=== PATIENT | female | born 1990 | race Caucasian/White ===

== ENCOUNTER → 2019-04-23 | Outpatient (CLI) | payer OTHER ==
[~2019-04-23] MED LIST: ALBU90I INH; ALBU90OI INH; ALBU90OI6 INH; AMOX500 PO; CEPH500 PO; CODACE30 PO; CRUTCH4 USE; CYCL10 PO; DIPH50 PO; FAMO20 PO; HYDACE5 PO; IBUP600 PO; IBUP800; IBUP800 PO; MULVITMINE PO; NORT10 PO; Naprosyn500 MG PO; ONDA4ODT MM; ONDA8ODT MM; OXYACE5T; OXYACE5T PO; PRED10 PO; PRED20 PO; PROM25 PO; Percocet 5-3251 EACH PO; Prednisone10 MG PO; RXCYCL10 PO; RXONDA4ODT MM; SERT100 PO; Valium5 MG PO; Verotin-Gr Cap1 EACH PO
[2019-04-23 11:36] LABS: BASOPHILS ABSOLUTE AUTO 0.04 K/mm3 (0.00-0.23); BASOPHILS PERCENT AUTO 1 % (0-2); EOSINOPHILS PERCENT AUTO 3 % (0-6); Hematocrit 41.2 % (33.0-51.0); Hemoglobin 13.5 g/dL (11.5-16.0); IMMATURE GRAN ABSOLUTE AUTO 0.02 K/mm3 (0.00-0.10); IMMATURE GRAN PERCENT AUTO 0 % (0-1); LYMPHOCYTES ABSOLUTE AUTO 2.41 K/mm3 (0.84-5.20); LYMPHOCYTES PERCENT AUTO 32 % (21-46); MONOCYTES PERCENT AUTO 5 % (4-13); Mean Corpuscular HGB 30.1 pg (26.0-34.0); Mean Corpuscular HGB Conc 32.8 g/dL (31.5-36.5); Mean Corpuscular Volume 92 fL (80-100); Mean Platelet Volume 10.9 fL (9.1-12.4); NEUTROPHILS PERCENT AUTO 60 % (41-73); Platelet Count 235 K/mm3 (150-400); RDW Coefficient Variation 11.8 % (11.7-14.2); RDW Standard Deviation 39.8 fL (35.1-46.3); Red Blood Cell Count 4.49 M/mm3 (3.80-5.20); White Blood Cell Count 7.57 K/mm3 (4.00-11.30)
[2019-04-23 12:00] LABS: Anion Gap 9 mmol/L (6-16); Blood Urea Nitrogen 16 mg/dL (8-24); Bun/Creatinine Ratio 16.8 (12.0-20.0); CO2, Blood 26 mmol/L (21-32); Chloride, Blood 106 mmol/L (98-108); Creatinine, Blood 0.95 mg/dL (0.40-1.00); Glomerular Filtration Rate >60 (60-); Glucose, Blood 76 mg/dL (70-99); Potassium, Blood 4.1 mmol/L (3.5-5.5); Sodium, Blood 141 mmol/L (136-145); Thyroid Stimulating Hormone 1.155 uIU/mL (0.360-4.800)
== END | disposition home or self-care (01) ==
LOC: LAB EV 11:30 → LAB SHORT 11:30
PROVIDERS: Physician Assistant Surgical
DX: R00.2 Palpitations (principal)
CPT/HCPCS: 80048; 84443; 85025

== ENCOUNTER 2019-10-15 19:24 | Inpatient (IN) | payer SELFPAY ==
[~2019-10-15] VITALS: Ht 165.1 cm; Wt 89.8 kg
[~2019-10-15 19:24] MED LIST changes: +Amoxicillin875 MG PO; +TRAM50 PO
[2019-10-15 20:20] LABS: BASOPHILS PERCENT AUTO 0 % (0-2); EOSINOPHILS PERCENT AUTO 0 % (0-6); Hematocrit 39.1 % (33.0-51.0); Hemoglobin 13.2 g/dL (11.5-16.0); IMMATURE GRAN ABSOLUTE AUTO 0.01 K/mm3 (0.00-0.10); IMMATURE GRAN PERCENT AUTO 0 % (0-1); LYMPHOCYTES ABSOLUTE AUTO 0.75 K/mm3 (0.84-5.20); LYMPHOCYTES PERCENT AUTO 17 % (21-46); MONOCYTES ABSOLUTE AUTO 0.17 K/mm3 (0.16-1.47); MONOCYTES PERCENT AUTO 4 % (4-13); Mean Corpuscular HGB 30.1 pg (26.0-34.0); Mean Corpuscular HGB Conc 33.8 g/dL (31.5-36.5); Mean Corpuscular Volume 89 fL (80-100); Mean Platelet Volume 10.9 fL (9.1-12.4); NEUTROPHILS ABSOLUTE AUTO 3.56 K/mm3 (1.96-9.15); NEUTROPHILS PERCENT AUTO 79 % (41-73); Platelet Count 161 K/mm3 (150-400); RDW Coefficient Variation 12.3 % (11.7-14.2); RDW Standard Deviation 40.3 fL (35.1-46.3); Red Blood Cell Count 4.38 M/mm3 (3.80-5.20); White Blood Cell Count 4.49 K/mm3 (4.00-11.30)
[2019-10-15 20:46] LABS: Alanine Aminotransfer (ALT/SGP 17 U/L (12-78); Albumin, Blood 3.3 g/dL (3.4-5.0); Albumin/Globulin Ratio 0.8 (0.8-1.8); Alk Phos 61 U/L (50-136); Anion Gap 7 mmol/L (6-16); Aspartate Aminotrans (AST/SGOT 20 U/L (12-37); Bilirubin, Total 0.4 mg/dL (0.1-1.0); Blood Urea Nitrogen 12 mg/dL (8-24); Bun/Creatinine Ratio 15.1 (12.0-20.0); CO2, Blood 26 mmol/L (21-32); Calcium, Blood 8.1 mg/dL (8.5-10.1); Chloride, Blood 102 mmol/L (98-108); Creatinine, Blood 0.79 mg/dL (0.40-1.00); Globulin, Blood 4.1 g/dL (2.2-4.0); Glomerular Filtration Rate >60 (60-); Glucose, Blood 102 mg/dL (70-99); Potassium, Blood 3.3 mmol/L (3.5-5.5); Sodium, Blood 135 mmol/L (136-145); Total Protein, Blood 7.4 g/dL (6.4-8.2); Troponin I <0.015 ng/mL (0.000-0.040)
[2019-10-15] MEDS ORDERED: TRAM50 PO (22:28)
[2019-10-15 23:23] LABS: Adenovirus Not Detected (NOT DETECT); Bordetella pertussis Not Detected (NOT DETECT); Chlamydophila pneumoniae Not Detected (NOT DETECT); Coronavirus 229E Not Detected (NOT DETECT); Coronavirus HKU1 Not Detected (NOT DETECT); Coronavirus NL63 Detected (NOT DETECT); Coronavirus OC43 Not Detected (NOT DETECT); Human Metapneumovirus Not Detected (NOT DETECT); Human Rhinovirus/Enterovirus Not Detected (NOT DETECT); Influenza A/2009-H1 Not Detected (NOT DETECT); Influenza A/H1 Not Detected (NOT DETECT); Influenza A/H3 Not Detected (NOT DETECT); Influenza B Not Detected (NOT DETECT); Mycoplasma pneumoniae Not Detected (NOT DETECT); Parainfluenza Virus 1 Not Detected (NOT DETECT); Parainfluenza Virus 2 Not Detected (NOT DETECT); Parainfluenza Virus 3 Not Detected (NOT DETECT); Parainfluenza Virus 4 Not Detected (NOT DETECT); Respiratory Syncytial Virus Not Detected (NOT DETECT)
--- NOTE | 2019-10-16 04:41 | NUR ---
29 YR OLD FEMALE ADMITTED TO THE FLOOR FROM THE ED WITH PNEUMONIA AND TO RULE OUT CARONAVIRUS 19. DROPLET PRECAUTIONS MAINTAINED. ALERT AND ORIENTED X 4. IVF AND ANTIBIOTICS ADMINISTERED -SEE MAR FOR DETAILS. ORIENTED TO USE OF CALL LIGHT, CALL LIGHT IN REACH. SPUTUM SPECIMEN AND NASAL SWAB OBTAINED AND SENT TO LAB FOR TESTING.
[2019-10-16 05:07] LABS: Alanine Aminotransfer (ALT/SGP 16 U/L (12-78); Albumin, Blood 2.7 g/dL (3.4-5.0); Albumin/Globulin Ratio 0.8 (0.8-1.8); Alk Phos 49 U/L (50-136); Anion Gap 5 mmol/L (6-16); Aspartate Aminotrans (AST/SGOT 21 U/L (12-37); Bilirubin, Total 0.2 mg/dL (0.1-1.0); Blood Urea Nitrogen 8 mg/dL (8-24); Bun/Creatinine Ratio 10.7 (12.0-20.0); CO2, Blood 26 mmol/L (21-32); Calcium, Blood 7.2 mg/dL (8.5-10.1); Chloride, Blood 110 mmol/L (98-108); Creatinine, Blood 0.75 mg/dL (0.40-1.00); Globulin, Blood 3.5 g/dL (2.2-4.0); Glomerular Filtration Rate >60 (60-); Glucose, Blood 89 mg/dL (70-99); Potassium, Blood 3.7 mmol/L (3.5-5.5); Sodium, Blood 141 mmol/L (136-145); Total Protein, Blood 6.2 g/dL (6.4-8.2)
[2019-10-16 05:15] LABS: Hematocrit 32.4 % (33.0-51.0); Hemoglobin 11.3 g/dL (11.5-16.0); Mean Corpuscular HGB 33.1 pg (26.0-34.0); Mean Corpuscular HGB Conc 34.9 g/dL (31.5-36.5); Mean Platelet Volume 11.1 fL (9.1-12.4); Platelet Count 143 K/mm3 (150-400); RDW Coefficient Variation 12.6 % (11.7-14.2); RDW Standard Deviation 41.6 fL (35.1-46.3); Red Blood Cell Count 3.41 M/mm3 (3.80-5.20); White Blood Cell Count 3.64 K/mm3 (4.00-11.30)
[2019-10-16 05:31] LABS: Mean Corpuscular Volume 95 fL (80-100)
--- NOTE | 2019-10-16 11:39 | NUR ---
alert and orinteated, coughing, sitting up talking on phone, bed in low position, call light in place, dr requested she wear a mask when others in room, received report from noc nurse
--- NOTE | 2019-10-16 19:16 | NUR ---
a+o, still coughing declined available pain medication, bed in low position, bsr shared with day staff and pt, ns bolus infusing, call light in reach, 4L via nc
--- NOTE | 2019-10-17 05:03 | NUR ---
SHIFT SUMMARY PT HAS HAD NO ACUTE CHANGES THIS SHIFT, MEDICATED 1X FOR R SIDED PAIN, 1X FOR HEADACHE, PT EXPRESSED CONCERNS ABOUT LIQUID STOOLS-(2 ON DAY SHIFT, 3 VERY SMALL-5MLS OR LESS ON NOC SHIFT) CDIFF SENT, PT HAS BEEN INDEP TO [facility], STILL REQUIRING 4LO2 AND REPORTS OCCASIONS OF SOB BUT STATES SHE IS FEELING MUCH BETTER, NO N/V THIS SHIFT- PT REPORTS NONE ALL DAY, REC ORDER FOR REG DIET FOR BREAKFAST, PT SLEEPING AT THIS TIME, CALL LIGHT IN REACH, WILL CONT TO MONITOR UNTIL REPORT GIVEN TO DAY RN.
[2019-10-17 05:22] LABS: BASOPHILS ABSOLUTE AUTO 0.01 K/mm3 (0.00-0.23); BASOPHILS PERCENT AUTO 0 % (0-2); EOSINOPHILS ABSOLUTE AUTO 0.02 K/mm3 (0.00-0.68); EOSINOPHILS PERCENT AUTO 1 % (0-6); Hematocrit 32.8 % (33.0-51.0); Hemoglobin 11.3 g/dL (11.5-16.0); IMMATURE GRAN ABSOLUTE AUTO 0.01 K/mm3 (0.00-0.10); IMMATURE GRAN PERCENT AUTO 0 % (0-1); LYMPHOCYTES ABSOLUTE AUTO 1.05 K/mm3 (0.84-5.20); LYMPHOCYTES PERCENT AUTO 39 % (21-46); MONOCYTES ABSOLUTE AUTO 0.28 K/mm3 (0.16-1.47); MONOCYTES PERCENT AUTO 10 % (4-13); Mean Corpuscular HGB 32.8 pg (26.0-34.0); Mean Corpuscular HGB Conc 34.5 g/dL (31.5-36.5); Mean Corpuscular Volume 95 fL (80-100); NEUTROPHILS ABSOLUTE AUTO 1.34 K/mm3 (1.96-9.15); NEUTROPHILS PERCENT AUTO 50 % (41-73); Platelet Count 139 K/mm3 (150-400); RDW Coefficient Variation 12.9 % (11.7-14.2); RDW Standard Deviation 41.9 fL (35.1-46.3); Red Blood Cell Count 3.45 M/mm3 (3.80-5.20); White Blood Cell Count 2.71 K/mm3 (4.00-11.30)
--- NOTE | 2019-10-17 19:30 | NUR ---
a+o, still coughing, 4L via nc, saline locked, bed in lowposition, call light in reach, report given to noc nurse
--- NOTE | 2019-10-17 21:31 | NUR ---
Pt AOx3. States pain in chest and head worse with coughing. Lungs sound very decreased in bases. Cough prod of yellow and red sputum per pt. Given Ultram and Humibid. Iv in Lt AC has Levaquin infusing.
--- NOTE | 2019-10-18 03:54 | NUR ---
SUMMARY PT HAD SOME N/V AND TX PER EMAR W/ RELIEF. PT ALSO COMPLAINED OF MIGRAINE AND STATED SHE TAKES IMITREX AT HOME. PROVIDER JESUS CONTACTED AND IMITREX WAS ORDERED. PT RESPONDED WELL TO IMITREX TX. PT FOUND TO HAVE SOME HIVES ON INSIDE OF BOTH WRISTS. PROVIDER JESUS CONTACTED AND BENEDRYL ORDERED AND LEVAQUIN WAS DC'D. PT STILL HAS HIVES NOTED BUT ARE NOT ITCHING OR SPREADING. PT HAS BEEN SLEEPING WELL SINCE BENEDRYL. WCTM. CALL LIGHT IN REACH.
[2019-10-18 05:08] LABS: PCO2 Arterial 49.3 mmHg (35-45); PO2 Arterial 75.9 mmHg (80-100); pH Blood Arterial 7.39 (7.35-7.45)
--- NOTE | 2019-10-18 16:15 | NUR ---
SHIFT SUMMARY PT IS A&O, INDEPENDENT IN RM. ADMITTED FOR RML PNM AND R/O COVID-19. PT CLEARED TODAY OF COVID-19, PER LAB, AND TAKEN OUT OF ISOLATION. PER SHIFT REPORT, PT DEVELOPED RASH TO BL ARMS AFTER RECEIVING MEDICATION LAST NIGHT AND AGAIN THIS AM. PT GIVEN BENADRYL, WHICH HELPED. IV ABX CHANGED LAST NIGHT, SEE EMAR, BUT PT STILL HAD A REACTION THIS AM TO SOMETHING. BENADRYL GIVEN AGAIN. DR COSTA NOTIFIED WHEN SEEING PT THIS AM, BUT REPORTED RASH IMPROVED. NO NEW ORDERS GIVEN. PT STILL ON 4L O2, VIA NC, AT START OF SHIFT. PT WANTING TO GO HOME SOON, BUT NEEDING TO BE ABLE TO DECREASE O2 REQUIREMENTS BEFORE BEING D/C'D TO HOME. O2 DECREASED TO 3L AT THIS TIME. LUNGS T/O VERY DIMINISHED THRU OUT. TYLENOL GIVEN X1 FOR C/O HEREDIA D/T COUGHING. TESSALON ALSO GIVEN; BOTH MEDICATIONS EFFECTIVE. CALL LT IN REACH. DENIED FURTHER NEEDS.
--- NOTE | 2019-10-18 21:39 | NUR ---
PATIENT RESTING IN BED ON 3L O2 NC AND IV ABX INFUSING. TESSALON GIVEN FOR COUGH. TITRATING O2 DOWN THIS SHIFT. STATING 94% ON 3L O2 NC DOWN FROM 4L ON DAY SHIFT.
--- NOTE | 2019-10-19 03:37 | NUR ---
SHIFT SUMMARY PATIENT HAD NO ACUTE CHANGES OBSERVED. AXO X4 AND INDEPENDENT IN THE ROOM. ON 3L O2 NC DOWN FROM 4L ON DAY SHIFT. REPORTED HEREDIA X ONE AND TYLENOL GIVEN. HARSH COUGH AND TESSALON GIVEN PER EMAR. VSS/AFEBRILE. DENIES N/V. PIV REMAINS INTACT. IV ABX INFUSED. PATIENT ABLE TO SLEEP T/O SHIFT. CALL LIGHT IN REACH,. BED IN LOWEST POSITION. WILL CONTINUE TO MONITOR UNTIL DAY SHIFT NURSE ASSUMES CARE.
--- NOTE | 2019-10-19 06:25 | NUR ---
PATIENT STATING 92-95% ON 2L O2 NC.
[2019-10-19] MEDS ORDERED: ALBU90OI INH (11:42)
[2019-10-19] MEDS ORDERED: BENZ100A PO (11:43)
[2019-10-19] MEDS ORDERED: GUAI600T33 PO (11:45)
[2019-10-19] MEDS ORDERED: HIGH POTENCY P1 EACH PO (11:50)
[2019-10-19] MEDS ORDERED: SUMA25 PO (11:51)
[2019-10-19] MEDS ORDERED: AZIT500 PO (11:52)
[2019-10-19] MEDS ORDERED: CEFU500T30 PO (11:53)
--- NOTE | 2019-10-19 13:32 | NUR ---
DISCHARGE SUMMARY PT DISCHARGED TO HOME. PT LEFT ROOM VIA WHEELCHAIR WITH ADMINISTRATIVE DIETITIAN ESCORT JUST PRIOR TO THIS NOTE. IV DC'D AND BELONGINGS RETURNED. HOME O2 EVAL COMPLETED PRIOR TO DC PER ORDERS, SEE NOTE. PT EDUCATED ON ALL DC INSTRUCTIONS AND INSTRUCTED TO FOLLOW UP WITH PCP. PT AGREES. ALL QUESTIONS ANSWERED.
== END 2019-10-19 13:30 | disposition home or self-care (01) | DRG 193 ==
LOC: ER 19:24 → MEDS 23:30 → ENPENDDIS 10-19 10:30 → MEDS 10-19 13:30
PROVIDERS: Hospitalist; Internal Medicine; Physician Assistant; ADMIT Internal Medicine
DX: J18.9 Pneumonia, unspecified organism (principal); J96.01 Acute respiratory failure with hypoxia; B34.2 Coronavirus infection, unspecified; E87.6 Hypokalemia; I08.1 Rheumatic disorders of both mitral and tricuspid valves; Z87.891 Personal history of nicotine dependence
CPT/HCPCS: 0099U; 36415; 36600; 71045; 80053; 82803; 83605; 83880; 84145; 84484; 85025; 85027; 87040; 87070; 87205; 87493; 93005; 93010; 93306; 94640; 94667; 94760; 94761; 96365; 96366; 96367; 96375; 99285-25; A9270; A9270-GY; J0456; J0696; J1200; J1650; J1956; J2405; J3010; J3480; J7030; J7050; U0002

== ENCOUNTER → 2020-08-18 | Outpatient (CLI) | payer OTHER ==
[~2020-08-18] MED LIST changes: +AZIT500 PO; +BENZ100A PO; +CEFU500T30 PO; +GUAI600T33 PO; +HIGH POTENCY P1 EACH PO; +SUMA25 PO
[2020-08-18 10:29] LABS: BASOPHILS ABSOLUTE AUTO 0.05 K/mm3 (0.00-0.23); BASOPHILS PERCENT AUTO 1 % (0-2); EOSINOPHILS ABSOLUTE AUTO 0.28 K/mm3 (0.00-0.68); EOSINOPHILS PERCENT AUTO 4 % (0-6); Hematocrit 42.6 % (33.0-51.0); Hemoglobin 14.5 g/dL (11.5-16.0); IMMATURE GRAN ABSOLUTE AUTO 0.02 K/mm3 (0.00-0.10); IMMATURE GRAN PERCENT AUTO 0 % (0-1); LYMPHOCYTES ABSOLUTE AUTO 1.99 K/mm3 (0.84-5.20); LYMPHOCYTES PERCENT AUTO 26 % (21-46); MONOCYTES ABSOLUTE AUTO 0.58 K/mm3 (0.16-1.47); MONOCYTES PERCENT AUTO 7 % (4-13); Mean Corpuscular HGB 30.3 pg (26.0-34.0); Mean Corpuscular Volume 89 fL (80-100); Mean Platelet Volume 10.6 fL (9.1-12.4); NEUTROPHILS ABSOLUTE AUTO 4.89 K/mm3 (1.96-9.15); NEUTROPHILS PERCENT AUTO 63 % (41-73); Platelet Count 227 K/mm3 (150-400); RDW Coefficient Variation 12.3 % (11.7-14.2); RDW Standard Deviation 40.1 fL (35.1-46.3); Red Blood Cell Count 4.78 M/mm3 (3.80-5.20); White Blood Cell Count 7.81 K/mm3 (4.00-11.30)
[2020-08-18 10:37] LABS: Alanine Aminotransfer (ALT/SGP 63 U/L (12-78); Albumin, Blood 4.2 g/dL (3.4-5.0); Albumin/Globulin Ratio 1.2 (0.8-1.8); Alk Phos 86 U/L (40-126); Anion Gap 11 mmol/L (6-16); Aspartate Aminotrans (AST/SGOT 33 U/L (12-37); Bilirubin, Total 0.7 mg/dL (0.1-1.0); Blood Urea Nitrogen 13 mg/dL (8-24); Bun/Creatinine Ratio 14.8 (12.0-20.0); CO2, Blood 24 mmol/L (21-32); Calcium, Blood 8.7 mg/dL (8.5-10.1); Chloride, Blood 102 mmol/L (98-108); Creatinine, Blood 0.88 mg/dL (0.40-1.00); Globulin, Blood 3.6 g/dL (2.2-4.0); Glomerular Filtration Rate >60 (60-); Glucose, Blood 91 mg/dL (70-99); Sodium, Blood 137 mmol/L (136-145); Total Protein, Blood 7.8 g/dL (6.4-8.2)
== END | disposition home or self-care (01) ==
LOC: LAB EV 10:24 → LAB SHORT 10:24
PROVIDERS: Physician Assistant
DX: R10.32 Left lower quadrant pain (principal)
CPT/HCPCS: 80053; 85025

== ENCOUNTER → 2020-08-19 | Outpatient (CLI) | payer OTHER | END | disposition home or self-care (01) | LOC: LAB EV 06:00 | DX: K52.9 Noninfective gastroenteritis and colitis, unspecified (principal) | CPT/HCPCS: 87015; 87045; 87046; 87205; 87899 ==

== ENCOUNTER 2021-12-13 16:41 | Inpatient (IN) | payer BC, OTHER ==
[~2021-12-13] VITALS: Ht 160 cm; Wt 94.7 kg
[~2021-12-13 16:41] MED LIST changes: +AMPDEX30CR PO; +HYDR1TAB94 PO; +KETO10 PO; +TAMS.4ER PO
[2021-12-13] MEDS ORDERED: GABA300 PO (16:54)
[2021-12-13 17:39] LABS: BASOPHILS ABSOLUTE AUTO 0.04 K/mm3 (0.00-0.23); BASOPHILS PERCENT AUTO 0 % (0-2); EOSINOPHILS ABSOLUTE AUTO 0.15 K/mm3 (0.00-0.68); EOSINOPHILS PERCENT AUTO 2 % (0-6); Hematocrit 41.9 % (33.0-51.0); Hemoglobin 14.1 g/dL (11.5-16.0); IMMATURE GRAN ABSOLUTE AUTO 0.02 K/mm3 (0.00-0.10); IMMATURE GRAN PERCENT AUTO 0 % (0-1); LYMPHOCYTES ABSOLUTE AUTO 2.99 K/mm3 (0.84-5.20); LYMPHOCYTES PERCENT AUTO 33 % (21-46); MONOCYTES ABSOLUTE AUTO 0.53 K/mm3 (0.16-1.47); MONOCYTES PERCENT AUTO 6 % (4-13); Mean Corpuscular HGB 29.9 pg (26.0-34.0); Mean Corpuscular HGB Conc 33.7 g/dL (31.5-36.5); Mean Corpuscular Volume 89 fL (80-100); Mean Platelet Volume 10.9 fL (9.1-12.4); NEUTROPHILS ABSOLUTE AUTO 5.38 K/mm3 (1.96-9.15); NEUTROPHILS PERCENT AUTO 59 % (41-73); Platelet Count 244 K/mm3 (150-400); RDW Coefficient Variation 11.9 % (11.7-14.2); RDW Standard Deviation 39.1 fL (35.1-46.3); Red Blood Cell Count 4.71 M/mm3 (3.80-5.20); White Blood Cell Count 9.11 K/mm3 (4.00-11.30)
[2021-12-13 17:53] LABS: Alanine Aminotransfer (ALT/SGP 25 U/L (12-78); Albumin, Blood 3.9 g/dL (3.4-5.0); Albumin/Globulin Ratio 1.1 (0.8-1.8); Alk Phos 79 U/L (50-136); Anion Gap 5 mmol/L (6-16); Aspartate Aminotrans (AST/SGOT 9 U/L (12-37); Beta HCG, Quantitative, Serum <1 mIU/mL (0-3); Bilirubin, Total 0.3 mg/dL (0.1-1.0); Blood Urea Nitrogen 12 mg/dL (8-24); Bun/Creatinine Ratio 18.4 (12.0-20.0); CO2, Blood 23 mmol/L (21-32); Calcium, Blood 8.9 mg/dL (8.5-10.1); Chloride, Blood 110 mmol/L (98-108); Creatinine, Blood 0.65 mg/dL (0.40-1.00); Globulin, Blood 3.6 g/dL (2.2-4.0); Glomerular Filtration Rate 119 (60-); Glucose, Blood 113 mg/dL (70-99); Potassium, Blood 3.6 mmol/L (3.5-5.5); Sodium, Blood 138 mmol/L (136-145); Total Protein, Blood 7.5 g/dL (6.4-8.2)
--- NOTE | 2021-12-13 23:27 | NUR ---
PATIENT IS A NEW ADMIT FROM THE ED. AXO X4 AND SBA TRANSFER FROM [facility] TO BED. NS INFUSING FROM THE ED X ONE BAG. REPORTS BLURRED VISION IN LEFT EYE X A FEW WEEKS. RIGHT EYE VISION HAS BEEN CLEAR AND BLURRY. REPORTS BLURRY ON ADMIT. MRI FORM FILLED OUT AND FAXED. DENIES PAIN, HEREDIA, SOB, AND N/V. ORIENTED TO ROOM AND CALL LIGHT SYSTEM. REPORTS WANTING TO SLEEP AFTER ASSESSMENT. WILL CONTINUE TO MONITOR.
--- NOTE | 2021-12-14 04:31 | NUR ---
SHIFT SUMMARY PATIENT AXOX 4 REPORTING BOTH EYES WITH BLURRY VISION AT THIS TIME. ONE ASSIST TO [facility]. DENIES PAIN, SOB, AND N/V. PIV REMAINS INTACT. MRI FORM FILLED OUT, FAXED AND IN CHART. ABLE TO SLEEP MOST OF THE SHIFT. LIVES WITH SPOUSE AND FOUR CHILDREN IN [place]. COOPERATIVE WITH CARE. CALL LIGHT IN REACH. BED IN LOWEST POSITION. WILL CONTINUE TO MONITOR UNTIL DAY SHIFT NURSE ASSUMES CARE.
--- NOTE | 2021-12-14 16:46 | NUR ---
DISCHARGE SUMMARY PATIENT DISCHARGED HOME. DISCHARGE PAPERWORK REVIEWED WITH PATIENT AND ALL QUESTIONS ANSWERED. NO NEW PRESCRIPTIONS. IV D/C'D. PATIENT AND ALL BELONGINGS TAKEN VIA WHEELCHAIR TO PERSONAL VEHICLE AND TAKEN HOME VIA FRIEND.
== END 2021-12-14 13:49 | disposition home or self-care (01) | DRG 74 ==
LOC: ER 16:41 → MEDS 16:42
PROVIDERS: Emergency Medicine; ADMIT Internal Medicine
DX: G62.0 Drug-induced polyneuropathy (principal); H46.3 Toxic optic neuropathy; H53.149 Visual discomfort, unspecified; T43.625A Adverse effect of amphetamines, initial encounter; E66.01 Morbid (severe) obesity due to excess calories; Z68.35 Body mass index [BMI] 35.0-35.9, adult; G43.909 Migraine, unspecified, not intractable, without status migrainosus; F90.9 Attention-deficit hyperactivity disorder, unspecified type; Z79.899 Other long term (current) drug therapy; Z98.51 Tubal ligation status; Z88.5 Allergy status to narcotic agent; Z79.51 Long term (current) use of inhaled steroids; Z87.891 Personal history of nicotine dependence
CPT/HCPCS: 70470; 70553; 80053; 84702; 85025; 93005; 93010; 96361; 96374; 96375; 99285-25; A9270; A9579; J1200; J1650; J1885; J2765; J7030; Q9967

== ENCOUNTER 2022-01-01 03:01 | Emergency (ER) | payer BC, OTHER ==
[~2022-01-01] VITALS: Ht 165.1 cm; Wt 90.7 kg
[~2022-01-01 03:01] MED LIST changes: +GABA300 PO
[2022-01-01 03:23] LABS: BASOPHILS ABSOLUTE AUTO 0.02 K/mm3 (0.00-0.23); BASOPHILS PERCENT AUTO 0 % (0-2); EOSINOPHILS ABSOLUTE AUTO 0.09 K/mm3 (0.00-0.68); EOSINOPHILS PERCENT AUTO 1 % (0-6); Hematocrit 38.5 % (33.0-51.0); Hemoglobin 12.8 g/dL (11.5-16.0); IMMATURE GRAN ABSOLUTE AUTO 0.03 K/mm3 (0.00-0.10); IMMATURE GRAN PERCENT AUTO 0 % (0-1); LYMPHOCYTES ABSOLUTE AUTO 2.79 K/mm3 (0.84-5.20); LYMPHOCYTES PERCENT AUTO 26 % (21-46); MONOCYTES ABSOLUTE AUTO 0.76 K/mm3 (0.16-1.47); MONOCYTES PERCENT AUTO 7 % (4-13); Mean Corpuscular HGB Conc 33.2 g/dL (31.5-36.5); Mean Corpuscular Volume 90 fL (80-100); NEUTROPHILS PERCENT AUTO 65 % (41-73); Platelet Count 203 K/mm3 (150-400); RDW Coefficient Variation 12.1 % (11.7-14.2); RDW Standard Deviation 40.2 fL (35.1-46.3); Red Blood Cell Count 4.26 M/mm3 (3.80-5.20); White Blood Cell Count 10.59 K/mm3 (4.00-11.30)
[2022-01-01 03:40] LABS: Source, Urine Clean Catch
[2022-01-01 03:48] LABS: Albumin, Blood 3.7 g/dL (3.4-5.0); Bilirubin, Total 0.2 mg/dL (0.1-1.0); Bun/Creatinine Ratio 20.2 (12.0-20.0); Calcium, Blood 8.4 mg/dL (8.5-10.1); Creatinine, Blood 0.64 mg/dL (0.40-1.00); Globulin, Blood 3.6 g/dL (2.2-4.0); Potassium, Blood 3.6 mmol/L (3.5-5.5); Total Protein, Blood 7.3 g/dL (6.4-8.2)
[2022-01-01 03:53] LABS: Bilirubin, Urine Neg (Neg); Blood, Urine 1+ (Neg); Glucose Qualitative, Urine Neg (Neg); Ketones, Urine Neg (Neg); Leukocyte Esterase, Urine Neg (Neg); Nitrite, Urine Neg (Neg); Protein, Urine Neg (Neg); Urobilinogen, Urine NORM (Normal)
[2022-01-01 04:06] LABS: Appearance, Urine Clear (Clear); Bacteria Not Seen /hpf; Color, Urine Yellow (P-Yellow); Red Blood Cells, Urine 0-2 /hpf (0-2); Squamous Epithelial Cells Rare /hpf (Few); White Blood Cells, Urine Not Seen /hpf (0-5)
[2022-01-01 04:17] LABS: U Amphetamine Screen Not Detected; U Barbituate Screen Not Detected; U Benzodiazapine Screen Not Detected; U Buprenorphine Screen Not Detected; U Cannabinoids Screen Not Detected; U Cocaine Screen Not Detected; U Methadone Screen Not Detected; U Methamphetamine Screen Not Detected; U Opiates Screen DETECTED; U Oxycodone Screen Not Detected; U Phencyclidine Screen Not Detected; U Propoxyphene Screen Not Detected
== END 2022-01-01 05:00 | disposition home or self-care (01) ==
LOC: ER 03:01
PROVIDERS: Emergency Medicine
DX: Z00.00 Encounter for general adult medical examination without abnormal findings (principal); Z88.5 Allergy status to narcotic agent; Z79.899 Other long term (current) drug therapy; Z87.891 Personal history of nicotine dependence
CPT/HCPCS: 80053; 81001; 81025; 83605; 85025; 93005; 93010; G0480; J7030

== ENCOUNTER → 2022-03-27 | Outpatient (CLI) | payer BC, OTHER ==
[2022-03-27 19:45] LABS: BASOPHILS ABSOLUTE AUTO 0.04 K/mm3 (0.00-0.23); BASOPHILS PERCENT AUTO 0 % (0-2); EOSINOPHILS ABSOLUTE AUTO 0.18 K/mm3 (0.00-0.68); EOSINOPHILS PERCENT AUTO 2 % (0-6); Hematocrit 37.8 % (33.0-51.0); Hemoglobin 12.8 g/dL (11.5-16.0); IMMATURE GRAN ABSOLUTE AUTO 0.05 K/mm3 (0.00-0.10); IMMATURE GRAN PERCENT AUTO 1 % (0-1); LYMPHOCYTES PERCENT AUTO 32 % (21-46); MONOCYTES ABSOLUTE AUTO 0.54 K/mm3 (0.16-1.47); MONOCYTES PERCENT AUTO 6 % (4-13); Mean Corpuscular HGB 30.2 pg (26.0-34.0); Mean Corpuscular HGB Conc 33.9 g/dL (31.5-36.5); Mean Corpuscular Volume 89 fL (80-100); Mean Platelet Volume 11.4 fL (9.1-12.4); NEUTROPHILS ABSOLUTE AUTO 5.94 K/mm3 (1.96-9.15); NEUTROPHILS PERCENT AUTO 60 % (41-73); Platelet Count 211 K/mm3 (150-400); RDW Coefficient Variation 12.5 % (11.7-14.2); RDW Standard Deviation 40.5 fL (35.1-46.3); Red Blood Cell Count 4.24 M/mm3 (3.80-5.20); White Blood Cell Count 9.85 K/mm3 (4.00-11.30)
[2022-03-27 19:58] LABS: Albumin, Blood 3.6 g/dL (3.4-5.0); Albumin/Globulin Ratio 1.1 (0.8-1.8); Bilirubin, Total 0.4 mg/dL (0.1-1.0); Bun/Creatinine Ratio 21.7 (12.0-20.0); Calcium, Blood 8.1 mg/dL (8.5-10.1); Creatinine, Blood 0.79 mg/dL (0.40-1.00); Globulin, Blood 3.2 g/dL (2.2-4.0); Potassium, Blood 3.7 mmol/L (3.5-5.5); Thyroid Stimulating Hormone 1.68 uIU/mL (0.360-4.800); Total Protein, Blood 6.8 g/dL (6.4-8.2)
== END | disposition home or self-care (01) ==
LOC: LAB SHORT 15:10
PROVIDERS: Family Medicine
DX: R73.9 Hyperglycemia, unspecified (principal); Z79.899 Other long term (current) drug therapy
CPT/HCPCS: 80053; 83036; 84443; 85025

== ENCOUNTER → 2023-06-04 | Outpatient (CLI) | payer BC, OTHER ==
[2023-06-05 09:44] LABS: BASOPHILS ABSOLUTE AUTO 0.08 K/mm3 (0.00-0.23); BASOPHILS PERCENT AUTO 1 % (0-2); EOSINOPHILS ABSOLUTE AUTO 0.15 K/mm3 (0.00-0.68); EOSINOPHILS PERCENT AUTO 1 % (0-6); Hematocrit 38.9 % (33.0-51.0); Hemoglobin 12.8 g/dL (11.5-16.0); IMMATURE GRAN ABSOLUTE AUTO 0.09 K/mm3 (0.00-0.10); IMMATURE GRAN PERCENT AUTO 1 % (0-1); LYMPHOCYTES ABSOLUTE AUTO 3.21 K/mm3 (0.84-5.20); LYMPHOCYTES PERCENT AUTO 26 % (21-46); MONOCYTES PERCENT AUTO 6 % (4-13); Mean Corpuscular HGB 28.7 pg (26.0-34.0); Mean Corpuscular HGB Conc 32.9 g/dL (31.5-36.5); Mean Corpuscular Volume 87 fL (80-100); Mean Platelet Volume 11.8 fL (9.1-12.4); NEUTROPHILS ABSOLUTE AUTO 7.95 K/mm3 (1.96-9.15); NEUTROPHILS PERCENT AUTO 65 % (41-73); Platelet Count 230 K/mm3 (150-400); RDW Standard Deviation 38.6 fL (35.1-46.3); Red Blood Cell Count 4.46 M/mm3 (3.80-5.20); White Blood Cell Count 12.18 K/mm3 (4.00-11.30)
[2023-06-05 10:27] LABS: Alanine Aminotransfer (ALT/SGP 34 U/L (12-78); Albumin, Blood 3.8 g/dL (3.4-5.0); Albumin/Globulin Ratio 1.1 (0.8-1.8); Alk Phos 97 U/L (50-136); Anion Gap 7 mmol/L (6-16); Aspartate Aminotrans (AST/SGOT 17 U/L (12-37); Bilirubin, Total 0.4 mg/dL (0.1-1.0); Blood Urea Nitrogen 18 mg/dL (8-24); Bun/Creatinine Ratio 21.7 (12.0-20.0); CHOL/HDL RATIO 3.1; CO2, Blood 24 mmol/L (21-32); Chloride, Blood 107 mmol/L (98-108); Cholesterol 122 mg/dL (50-200); Creatinine, Blood 0.83 mg/dL (0.40-1.00); Globulin, Blood 3.6 g/dL (2.2-4.0); Glomerular Filtration Rate 95 (60-); Glucose, Blood 115 mg/dL (70-99); HDL Cholesterol 39 mg/dL (>39); LDL/HDL RATIO 1.6; Low Density Lipoprotein Chol 61 mg/dL (0-110); Potassium, Blood 4.1 mmol/L (3.5-5.5); Sodium, Blood 138 mmol/L (136-145); Total Protein, Blood 7.4 g/dL (6.4-8.2); Triglycerides 108 mg/dL (30-140); Very Low Density Lipoprot Chol 21 mg/dL (6-28)
== END ==
LOC: LAB 15:45 → LAB SHORT 15:45
PROVIDERS: Family Medicine
DX: N95.9 Unspecified menopausal and perimenopausal disorder (principal); Z79.899 Other long term (current) drug therapy
CPT/HCPCS: 80053; 80061; 82306; 83001; 83002; 83036; 84443; 85025

== ENCOUNTER → 2025-02-11 | Outpatient (CLI) | payer BC ==
[~2025-02-11] MED LIST changes: +Calcium Carbon500 MG PO; +OMEP20ER PO
[2025-02-11 12:37] LABS: Bacterial Vaginosis PCR Negative (NEGATIVE); Candida Group, PCR NOT DETECTED (NOT DETECT); Candida glabrata-krusei, PCR NOT DETECTED (NOT DETECT)
== END ==
LOC: LAB SHORT 10:49 → LAB 10:49
PROVIDERS: Family Medicine
DX: N89.8 Other specified noninflammatory disorders of vagina (principal)
CPT/HCPCS: 81515; 87086

== ENCOUNTER 2025-06-18 05:30 | Emergency (ER) | payer BC ==
[~2025-06-18] VITALS: Ht 165.1 cm; Wt 106.6 kg
[2025-06-18 05:42] VITALS: BP 154/90
[2025-06-18] MEDS ORDERED: Veetids 500500 MG PO (05:46)
[2025-06-18] MEDS ORDERED: PERIDEX15 ML MM (05:46)
[2025-06-18] MEDS ORDERED: IBU600 MG PO (05:46)
== END 2025-06-18 06:00 | disposition home or self-care (01) ==
LOC: ER 05:30
DX: K08.89 Other specified disorders of teeth and supporting structures (principal); G43.909 Migraine, unspecified, not intractable, without status migrainosus; Z87.891 Personal history of nicotine dependence; Z79.899 Other long term (current) drug therapy; Z88.5 Allergy status to narcotic agent
CPT/HCPCS: 99282; A9270